=== PATIENT | female | born 1980 | race Caucasian/White ===

== ENCOUNTER 2016-12-26 13:26 | Outpatient (CLI) | payer OTHER ==
--- NOTE | 2016-12-26 15:22 | ULT ---
OB ULTRASOUND: COMPARISON: None. HISTORY: female. Evaluate size, dates, and anatomy. TECHNIQUE: Multiplanar, sauceda scale, and color Doppler images were obtained in a transabdominal ultrasound . FINDINGS: There is a single live intrauterine with heart rate of 140 b.p.m. A survey was perf ormed which is unremarkable. The head, intracranial structures, heart, stomach, kidneys, umbilical cord, umbilical cord insertion, spine, face, and extremities were normal. Average age of the fetus based off today's examination is 24 weeks 0 days. The following measurements were taken and dates b ased off these measurements are as follows. BPD 5.60 cm, 23 weeks 1 day HC 22.00 cm, 24 weeks 0 day AC 19.92 cm, 24 weeks 4 days FL 4.43 cm, 24 weeks 4 days The placenta is fundal/posterior in location without evidence of placenta previa. The cervix is nor mal in length. EDGAR is 17.2 cm, which is normal. IMPRESSION: Single live intrauterine with estimated age of 24 weeks 0 days. POS: [facility]
== END 2016-12-26 13:27 | disposition home or self-care (01) ==
LOC: SCSULT 13:26
PROVIDERS: ATTEND Family Medicine
DX: Z34.92 Encounter for supervision of normal pregnancy, unspecified, second trimester (principal); Z3A.21 21 weeks gestation of pregnancy
CPT/HCPCS: 76805

== ENCOUNTER 2017-04-13 20:57 | Inpatient (IN) | payer OTHER ==
--- NOTE | 2017-04-11 16:19 | HP ---
HISTORY OF PRESENT ILLNESS: This is a 36-year-old white female G4, P3 at 39 weeks with an EDC of 05/2017, who is being admitted for an elective Cytotec/Pitocin induction. The patient does have a hi story of rapid deliveries. course has been uncomplicated. The patient has been having occa sional contractions for the past several days. She was seen in the office on Friday. Cervix was not ed to be 2 cm dilated, 50%, high vertex presentation. PAST MEDICAL HISTORY: Anxiety disorder, headaches, questionable myocardial infarction at age 22, his tory of a CVA with right upper extremity weakness in 02/2013. SURGERIES: None. FAMILY HISTORY: Unremarkable. SOCIAL HISTORY: The patient does not smoke, does not drink. She works for [employer] studies. She is erika ied. She does have 3 other kids. REVIEW OF SYSTEMS: As above. PHYSICAL EXAMINATION: VITAL SIGNS: Stable, afebrile. HEENT: Clear. HEART: Regular rate and rhythm. LUNGS: Clear. ABDOMEN: Gravid. EXTREMITIES: With no edema. Cervix is 2 cm, 50%, high vertex. LABORATORY: GBS positive. HIV negative. One-hour GTT 168. Three-hour GTT abnormal. Fasting blood sugars all have been less than 100 for the past several weeks. The patient did not tolerate metform in. History of anemia with hemoglobin of 8.7. GC chlamydia negative. HPV negative. Thyroid: Hype rthyroid. HIV negative. B positive blood type. Urine culture negative. Rubella immune. ASSESSMENT: 1. A 39-week intrauterine . 2. History of rapid deliveries. 3. Hyperthyroid. 4. Gestational diabetes, diet controlled, GBS positive. 5. Anemia. PLAN: 1. Admit for elective Cytotec/Pitocin induction. 2. Emphasized iron daily for patient. 3. Cytotec/Pitocin induction. 4. Routine L&D orders and anesthesia orders.
[2017-04-13] MEDS ORDERED: Acetaminophen/Codeine 30-300mg Tablet PO PRN (21:07)
[2017-04-13] MEDS ORDERED: Misoprostol 200 MCG TAB PR PRN (21:07)
[2017-04-13] MEDS ORDERED: Promethazine HCl 25 MG/ML VIAL IM PRN (21:07)
[2017-04-13] MEDS ORDERED: Lidocaine 1% (PF) 30 ML VIAL SC PRN (21:07)
[2017-04-13] MEDS ORDERED: Ondansetron HCl/PF 4 MG/2 ML Vial IVP PRN (21:07)
[2017-04-13] MEDS ORDERED: HYDROcodone/Acetaminophen 5/325 mg Tablet PO PRN (21:07)
[2017-04-13] MEDS ORDERED: Ibuprofen 800 MG TAB PO PRN (21:07)
[2017-04-13] MEDS ORDERED: Penicillin G Potassium 5 MILL.UNITS in Sodium Chloride 0.9% 100 ML IVPB SCH (21:30)
[2017-04-13 21:59] VITALS: BMI 29.9
[2017-04-13 22:09] LABS: Hemoglobin 11.7 g/dL (12.0-16.0); Mean Corpuscular HGB CONC 33.9 g/dL (32.0-36.0); Mean Corpuscular Volume 82.7 fl (81.0-99.0); Mean Platelet Volume 10.3 fL (7.4-10.4); Platelet Count 242 thou/uL (130-400); RBC Distribution Width 20.6 % (11.5-14.5); Red Blood Cell (RBC) Count 4.16 mill/uL (4.20-5.40); White Blood Cell (WBC) Count 8.8 thou/uL (4.8-10.8)
[2017-04-13] MEDS: Lactated Ringer's 1,000 ML IV SCH (22:09)
[2017-04-13] MEDS: Misoprostol 100 MCG TAB VAG SCH (22:26)
[2017-04-13 22:50] LABS: HBSAg Index 0.17 S/CO (0-0.99); Hep B Surf Ag Non-Reactive S/CO (NonReactive); Syphilis Antibody Nonreactive (Nonreactive); Syphilis Antibody Index 0.07 S/CO (<1.00 Non-Reactive)
[2017-04-14] MEDS ORDERED: Penicillin G 2.5 MILL.units 50 ML ONE (01:21)
[2017-04-14] MEDS: Misoprostol 100 MCG TAB VAG SCH ×5 (01:26→16:51)
[2017-04-14] MEDS: Penicillin G 2.5 MILL.units 2.5 MILL.UNITS in Premix Bag 1 BAG IVPB SCH ×4 (01:26→16:51)
[2017-04-14] MEDS: LR 500 ML/Oxytocin 10 units 500 ML IV SCH ×2 (06:00→09:06)
[2017-04-14] MEDS ORDERED: Bupivacaine 20 ML, Fentanyl 400 MCG in Sodium Chloride 0.9% 72 ML EPIDURAL SCH (06:00)
[2017-04-14] MEDS ORDERED: Naloxone HCl 0.4 mg/ml Vial IVP PRN ×2 (07:42)
[2017-04-14] MEDS ORDERED: Promethazine HCl 25 MG/ML VIAL IM PRN (07:42)
[2017-04-14] MEDS ORDERED: Lactated Ringer's 500 ML IV PRN (07:42)
[2017-04-14] MEDS ORDERED: Eucerin (Mineral Oil/Petrolatum,White) 30 gm Jar TOP PRN (07:42)
[2017-04-14] MEDS ORDERED: Ondansetron HCl/PF 4 MG/2 ML Vial IVP PRN (07:42)
[2017-04-14] MEDS ORDERED: Acetaminophen 325 MG TAB PO PRN (07:42)
[2017-04-14] MEDS ORDERED: ePHEDrine/0.9% NaCl/PF SYRINGE 50 mg/10 ml SLOW IVP PRN (07:42)
[2017-04-14] MEDS ORDERED: diphenhydrAMINE 50 MG/ML VIAL IVP PRN (07:42)
[2017-04-14] MEDS ORDERED: Communication Order-Pharmacy FS SCH (07:45)
[2017-04-14] MEDS ORDERED: Fentanyl 4mcg/Marcaine 0.1% Cassette 100 ML EPIDURAL SCH (07:45)
[2017-04-14] MEDS: Lactated Ringer's 1,000 ML IV SCH ×2 (07:57→16:51)
[2017-04-14] MEDS: LR / Pitocin 40 units/1000 ml 1,000 ML IV PRN ×2 (10:41→12:07)
--- NOTE | 2017-04-14 11:52 | DN ---
DATE: 04/14/2017 PREOPERATIVE DIAGNOSES: 1. Term . 2. GBS positive. POSTOPERATIVE DIAGNOSES: 1. Term . 2. GBS positive. PROCEDURE: Spontaneous vaginal delivery with repair of a 2 cm left vaginal wall tear. ANESTHESIA: Epidural. PROCEDURE: This 36-year-old white female was taken to the delivery room, complete and pushing. The patient prepped and draped sterilely. Delivered a baby boy with Apgars 9 at 1 minute and 9 at 5 celeste sheila. Baby did breathe and cry vigorously upon delivery. Delivered placenta, 3-vessel intact. Repai red a 2 cm left vaginal wall laceration with 3-0 chromic. Delivered placenta, 3-vessel intact. Leisa mated blood loss 350 mL. Mom and baby did well.
[2017-04-14] MEDS ORDERED: Hydrocerin (Eucerin) Cream 120 gm Jar TOP PRN (12:18)
[2017-04-14] MEDS ORDERED: LR / Pitocin 40 units/1000 ml 1,000 ML IV SCH (14:00)
[2017-04-14] MEDS ORDERED: Adacel (T-DAP) 0.5 ML VIAL IM ONE (14:00)
[2017-04-14] MEDS ORDERED: Bisacodyl 10 MG SUPP PR PRN (14:00)
[2017-04-14] MEDS ORDERED: Milk Of Magnesia 30 ML UDCUP PO PRN (14:00)
[2017-04-14] MEDS ORDERED: Lanolin Ointment 7 GM TUBE TOP PRN (14:00)
[2017-04-14] MEDS: Ferrous Sulfate 325 MG TAB PO SCH (16:54)
[2017-04-14] MEDS ORDERED: Lidocaine 2% MPF 10 ML AMP (For Epidural Use) ONE (17:15)
[2017-04-14] MEDS ORDERED: ePHEDrine/0.9% NaCl/PF SYRINGE 50 mg/10 ml ONE (17:15)
[2017-04-14] MEDS ORDERED: Ibuprofen 800 MG TAB PO SCH (17:30)
[2017-04-14] MEDS: Ibuprofen 800 MG TAB PO SCH ×3 (17:34→17:36)
[2017-04-14] MEDS: Docusate Calcium (SURFAK) 240 MG CAP PO SCH (21:28)
[2017-04-15 05:43] LABS: Mean Corpuscular HGB CONC 32.8 g/dL (32.0-36.0); Mean Corpuscular Hemoglobin 27.8 pg (27.0-31.0); Mean Corpuscular Volume 84.9 fl (81.0-99.0); Mean Platelet Volume 10.2 fL (7.4-10.4); Platelet Count 209 thou/uL (130-400); RBC Distribution Width 20.6 % (11.5-14.5); Red Blood Cell (RBC) Count 3.97 mill/uL (4.20-5.40); White Blood Cell (WBC) Count 9.6 thou/uL (4.8-10.8)
[2017-04-15] MEDS ORDERED: Ibuprofen 100 MG/5 ML UDCUP PO SCH (06:00)
[2017-04-15 07:45] VITALS: BP 136/74; TEMP 99.6
[2017-04-15] MEDS: Ferrous Sulfate 325 MG TAB PO SCH (08:02)
[2017-04-15] MEDS: Docusate Calcium (SURFAK) 240 MG CAP PO SCH (08:02)
[2017-04-15] MEDS ORDERED: Prenatal Vitamin 1 TAB PO SCH (09:00)
== END 2017-04-15 12:30 | disposition home or self-care (01) | DRG 775 ==
LOC: L&D 20:57 → 3SW 04-14 13:43
PROVIDERS: ADMIT Family Medicine; ATTEND Family Medicine
PROC: 10E0XZZ Delivery of Products of Conception, External Approach (ICD-10-PCS; principal; 2017-04-14)
DX: O24.420 Gestational diabetes mellitus in childbirth, diet controlled (principal); D64.9 Anemia, unspecified; O99.284 Endocrine, nutritional and metabolic diseases complicating childbirth; E05.90 Thyrotoxicosis, unspecified without thyrotoxic crisis or storm; O99.824 Streptococcus B carrier state complicating childbirth; O99.02 Anemia complicating childbirth; Z3A.39 39 weeks gestation of pregnancy; Z37.0 Single live birth; Z86.73 Personal history of transient ischemic attack (TIA), and cerebral infarction without residual deficits
CPT/HCPCS: 36415; 51702; 85027; 86780; 87340; J2001; J2540; J3010; J3490; J7050; J7120

== ENCOUNTER 2017-10-30 21:42 | Emergency (ER) | payer OTHER ==
[2017-10-30] MEDS ORDERED: diphenhydrAMINE 50 MG/ML VIAL ONE (22:23)
[2017-10-30] MEDS ORDERED: Metoclopramide HCl 10 MG/2 ML VIAL ONE (22:23)
[2017-10-30 22:44] LABS: Bilirubin Negative (Negative); Blood, Urine Large (Negative); Clarity CLOUDY (Clear); Glucose, Urine (Dipstick) Negative (Negative); Leukocyte Small (Negative); Nitrite Negative (Negative); Protein, Urine (Dipstick) Trace mg/dL (Neg-Trace); Specific Gravity, Urine 1.004 (1.002-1.036); Urobilinogen 0.2 mg/dL (0.2-1.0); pH, Urine 6.5 (5.0-9.0)
[2017-10-30 22:46] LABS: Pathc Cast-AUWi Flag 0.87 (0-2.49)
[2017-10-30 22:52] LABS: Pregnancy Test - Urine (BHCG) Negative (Negative); Pregu Control Background? CLEAR/WHITE (CLR/WHITE); Pregu Control Bar Appear? YES (CONTROL BAR); Specific Gravity 1.004 (1.002-1.036)
[2017-10-30 22:58] LABS: Bacteria/HPF Rare-Few HPF (None Seen); Hyaline Casts/LPF 0-3 HYALINE CAST LPF (0-3 Hyaline); RBC/HPF 21-50 HPF (0-3); Squamous Epithelial 0-3 HPF (0-3)
[2017-10-30] MEDS ORDERED: Ketorolac Tromethamine 30 MG/ML VIAL ONE (23:27)
== END 2017-10-31 00:04 | disposition left against medical advice (07) ==
LOC: ERS 21:42
DX: R51 Headache (principal); I25.2 Old myocardial infarction
CPT/HCPCS: 81003; 81015; 81025; 96365; 96375; J1200; J1885; J2765

== ENCOUNTER 2019-06-27 23:57 | Emergency (ER) | payer OTHER, SELFPAY ==
[2019-06-28 00:30] LABS: #Lymphocytes 1.4 thou/uL (1.20-3.40); #Monocytes 0.4 thou/uL (0.11-0.59); #Neutrophils 13.2 thou/uL (1.40-6.50); %Basophils 0.3 % (0.0-1.0); %Lymphocytes 9.1 % (21.0-51.0); %Monocytes 2.4 % (0.0-10.0); %Neutrophils 88.2 % (42.0-75.0); Hemoglobin 12.7 g/dL (12.0-16.0); Mean Corpuscular HGB CONC 34.9 g/dL (32.0-36.0); Mean Corpuscular Hemoglobin 30.7 pg (27.0-31.0); Mean Corpuscular Volume 87.9 fL (78.0-98.0); Platelet Count 425 thou/uL (130-400); RBC Distribution Width 12.5 % (11.5-14.5); Red Blood Cell (RBC) Count 4.14 mill/uL (4.20-5.40); White Blood Cell (WBC) Count 14.9 thou/uL (4.8-10.8)
[2019-06-28 00:52] LABS: ALT (SGPT) 11 U/L (8-55); AST (SGOT) 14 U/L (5-34); Alkaline Phosphatase 103 U/L (40-110); Anion Gap 16 mmol/L (10-20); BUN (Urea Nitrogen) 9 mg/dL (7.0-18.7); Bilirubin, Total 0.3 mg/dL (0.2-1.2); Calc. Creatinine Clearance 0 mL/min (70-130); Calcium 9.6 mg/dL (7.8-10.44); Carbon Dioxide 21 mmol/L (22-29); Chloride 104 mmol/L (98-107); Estimated GFR-MDRD 83; Globulin 3.7 g/dL (2.4-3.5); Glucose 148 mg/dL (70-105); Potassium 3.2 mmol/L (3.5-5.1); Protein, Total 7.7 g/dL (6.0-8.3); Sodium 138 mmol/L (136-145)
[2019-06-28] MEDS ORDERED: Sucralfate 1 GM/10 ML UDCUP ONE (01:54)
[2019-06-28] MEDS ORDERED: HYDROcodone/Acetaminophen 5/325 mg Tablet ONE (02:15)
--- NOTE | 2019-06-28 07:44 | RAD ---
SINGLE VIEW CHEST: Date: 06/28/2019 COMPARISON: 02/25/2013. HISTORY: Chest pain. FINDINGS: Single view of the chest shows a normal sized cardiomediastinal silhouette. There is no evidence of c onsolidation, mass, or pleural effusion. The bones are unremarkable. IMPRESSION: No evidence of acute cardiopulmonary disease. POS: [facility]
== END 2019-06-28 02:20 | disposition home or self-care (01) ==
LOC: ERS 23:57
DX: R10.13 Epigastric pain (principal); I25.2 Old myocardial infarction
CPT/HCPCS: 36415; 71045; 80053; 83690; 84484; 85025; 93005

== ENCOUNTER 2019-06-29 08:54 | Day surgery (SDC) | payer BC, SELFPAY ==
[2019-06-29] MEDS ORDERED: Ondansetron PF 4 MG/2 ML Vial ONE ×3 (09:36→12:47)
[2019-06-29] MEDS ORDERED: Morphine 4 MG/ML VIAL ONE ×4 (09:36→16:36)
[2019-06-29 09:44] LABS: #Lymphocytes 1.6 thou/uL (1.20-3.40); #Monocytes 0.8 thou/uL (0.11-0.59); #Neutrophils 14.3 thou/uL (1.40-6.50); %Basophils 0.2 % (0.0-1.0); %Eosinophils 0.2 % (0.0-10.0); %Lymphocytes 9.5 % (21.0-51.0); %Monocytes 4.9 % (0.0-10.0); %Neutrophils 85.2 % (42.0-75.0); Mean Corpuscular HGB CONC 32.4 g/dL (32.0-36.0); Mean Corpuscular Hemoglobin 29.1 pg (27.0-31.0); Mean Corpuscular Volume 89.8 fL (78.0-98.0); Mean Platelet Volume 7.7 fL (7.4-10.4); Platelet Count 362 thou/uL (130-400); RBC Distribution Width 12.6 % (11.5-14.5); Red Blood Cell (RBC) Count 4.12 mill/uL (4.20-5.40); White Blood Cell (WBC) Count 16.7 thou/uL (4.8-10.8)
--- NOTE | 2019-06-29 09:55 | ULT ---
EXAM: US Gallbladder RUQ CLINICAL HISTORY: Right upper quadrant pain. COMPARISON: None. FINDINGS: Pancreas: Head of the pancreas has a normal echotexture. The remainder the pancreas is obscured by b owel gas Liver:Hepatic parenchyma has a normal echotexture. No hepatic masses or intrahepatic biliary dilatati on. Right hepatic lobe: 16.2 cm Gallbladder: No sonographic evidence of cholelithiasis. Gallbladder wall is thickened measuring 0.49 cm. Small amount of pericholecystic fluid. Gregg's sign:Negative Portal Vein: Patent. Appropriate directional flow Bile ducts: Common bile duct diameter 0.34 cm Right kidney: No hydronephrosis. Right kidney measures 8.7 cm in length. IMPRESSION: 1. No sonographic evidence of cholelithiasis. However, gallbladder wall is thickened and there is a s mall amount. Cholecystic fluid. If there is concern for acalculus cholecystitis, consider HIDA scan.
[2019-06-29 10:06] LABS: ALT (SGPT) 9 U/L (8-55); AST (SGOT) 11 U/L (5-34); Albumin 3.7 g/dL (3.5-5.0); Alkaline Phosphatase 100 U/L (40-110); Anion Gap 13 mmol/L (10-20); BUN (Urea Nitrogen) 7 mg/dL (7.0-18.7); Bilirubin, Total 0.7 mg/dL (0.2-1.2); Calc. Creatinine Clearance 0 mL/min (70-130); Calcium 8.7 mg/dL (7.8-10.44); Carbon Dioxide 21 mmol/L (22-29); Chloride 104 mmol/L (98-107); Estimated GFR-MDRD Greater than 90; Globulin 3.5 g/dL (2.4-3.5); Glucose 100 mg/dL (70-105); Lipase 5 U/L (8-78); Potassium 3.4 mmol/L (3.5-5.1); Protein, Total 7.2 g/dL (6.0-8.3); Sodium 135 mmol/L (136-145)
[2019-06-29] MEDS ORDERED: Lidocaine 1% PF 5 ML VIAL ONE (12:47)
[2019-06-29] MEDS ORDERED: Rocuronium Bromide 10 MG/ML (10ML VIAL) ONE (12:47)
[2019-06-29] MEDS ORDERED: PROPOFOL 200 MG/20 ML VIAL ONE (12:47)
[2019-06-29] MEDS ORDERED: Dexamethasone 20 MG/5 ML VIAL ONE (12:47)
[2019-06-29] MEDS ORDERED: Ketorolac Tromethamine 30 MG/ML VIAL ONE (12:47)
[2019-06-29] MEDS ORDERED: Esmolol 100 MG/10 ML VIAL ONE (12:47)
--- NOTE | 2019-06-29 14:14 | CON ---
DATE OF CONSULTATION: 06/29/2019 REQUESTING PHYSICIAN: Mau Porras DO ATTENDING SURGEON: Dr. Melgar. REASON FOR CONSULTATION: Abdominal pain with abnormal abdominal ultrasound. HISTORY OF PRESENT ILLNESS: The patient is a 39-year-old woman who presented to the emergency department with approximately 36 hours of abdominal pain, primarily in the right upper quadrant, significant nausea and two episodes of diarrhea. The patient denied any ill contacts or fevers. She relates this episode to multiple previous episodes over the prior year, which she states have become more frequent in duration, frequency, and intensity. ALLERGIES: NO KNOWN DRUG ALLERGIES. CURRENT MEDICATIONS: 1. Carafate. 2. Pepcid before meals. PAST MEDICAL HISTORY: Migraine headaches. The patient reports a cardiac history of "heart attack" and irregular heart beat at age 22. The patient reports having a stress test, but no other procedures done. PAST SURGICAL HISTORY: None. SOCIAL HISTORY: The patient lives at home with family. She denies drug, tobacco, or alcohol use. PHYSICAL EXAMINATION: VITAL SIGNS: Blood pressure 138/54, heart rate 82, respirations 16, oxygen saturation 97% on room air, and temperature is 98.5. GENERAL: The patient is resting in the ER bed. She appears to be having some discomfort, primarily related to nausea and she is receiving Zofran at this time. The patient is awake, alert, conversant, appropriate. HEENT. Head is normocephalic and atraumatic. Eyes, extraocular motions are intact. PERRLA bilaterally. Ears are atraumatic without discharge. Nose is atraumatic without discharge. Oropharynx is clear. NECK: Nontender. Trachea is midline. No JVD. CHEST: Clear to auscultation with good inspiratory and expiratory efforts. HEART: Regular rate and rhythm. ABDOMEN: Soft with right upper quadrant tenderness when the right lower quadrant is palpated. The patient also has significant positive Gregg sign. Bowel sounds are active. EXTREMITIES: Neurovascularly intact x4. BACK: Has negative CVA tenderness but did have right upper quadrant pain related to tapping on her right side. LABORATORY FINDINGS: WBC 16.7, hemoglobin 12.0, hematocrit 37.0, platelets 62. Sodium 135, potassium 3.4, chloride 104, CO2 of 21, BUN 7, creatinine 0.65, glucose 100. LFTs are unremarkable with a total bilirubin of 0.7, AST 11, ALT 9, alkaline phosphatase 100, lipase 5. RADIOGRAPHIC FINDINGS: Abdominal ultrasound shows no sonographic evidence of cholelithiasis. However, the gallbladder wall is thickened and there is a small amount of cholecystic fluid. Gallbladder wall measures 0.49 cm. Common bile duct measures 0.34 cm. ASSESSMENT AND PLAN: 1. Abdominal pain. 2. Cholecystitis without cholelithiasis. PLAN: Plan will be to admit the patient to day-stay for laparoscopic cholecystectomy. We will keep the patient n.p.o., pain control, pulmonary toilet, gastritis, mechanical VTE prophylaxis. The patient will likely be able to be discharged home today. The evaluation, examination, laboratory, and radiographic findings were discussed with Dr. Melgar prior to this dictation and he is examining the patient in the emergency department at this time. Job ID: [id number] MTDD
[2019-06-29] MEDS ORDERED: Bupivacaine 0.25% HCL 30 ML VIAL ONE (18:40)
[2019-06-29] MEDS ORDERED: Lidocaine 1% w/Epinephrine 1:100K 20 ML VIAL ONE (18:40)
[2019-06-29] MEDS ORDERED: Iothalamate Meglumine 60% 30 ML VIAL FS ONE (18:40)
[2019-06-29] MEDS ORDERED: Fentanyl 100 MCG/2 ML VIAL ONE (18:45)
[2019-06-29] MEDS ORDERED: Morphine 2 MG/ML SYRINGE ONE (20:25)
[2019-06-29] MEDS ORDERED: Labetalol HCl 100 MG/20 ML VIAL ONE (20:55)
[2019-06-29] MEDS ORDERED: Labetalol HCl 100 MG/20 ML VIAL SLOW IVP PRN (20:58)
[2019-06-29] MEDS ORDERED: HYDROcodone/Acetaminophen 5/325 mg Tablet ONE ×2 (21:01)
--- NOTE | 2019-06-30 01:21 | OP ---
DATE OF PROCEDURE: 06/29/2019 PREOPERATIVE DIAGNOSIS: Acute cholecystitis. POSTOPERATIVE DIAGNOSIS: Acute cholecystitis. PROCEDURE PERFORMED: Laparoscopic cholecystectomy. ANESTHESIA: General. ESTIMATED BLOOD LOSS: Minimal. COMPLICATIONS: None. FINDINGS: Cholecystitis. TECHNIQUE: The patient was taken to the operating room and laid supine on the operating table. After general anesthetic was obtained, the abdomen was prepped and draped in a sterile fashion. A curvilinear incision made below the umbilicus. Electrocautery was used to dissect down to and incise the external fascia. The abdominal cavity was entered bluntly using a Sharon clamp. Holding stitch of Vicryl placed on each side of the fascia. Desiree trocar was placed. High-flow pneumoperitoneum was obtained. An upper midline 5-mm port and two right upper quadrant 5-mm ports were placed under direct camera visualization. The gallbladder was retracted from the gallbladder fossa. The peritoneum of the gallbladder was opened anteriorly and posteriorly. The critical view triangle was seen showing only the cystic duct and cystic artery branching medial to lateral with no other branching structures. A clip was placed high on the cystic duct. A small ductotomy was made just proximal to that. Cholangiocath was brought in through a separate stab incision and placed into cystic duct. Cholangiogram was performed which shows no contrast flow into the duodenum and a large stone in the distal common bile duct. There was a moderately enlarged common bile duct, right and left hepatic duct system. Cholangiocath was removed. Two clips were placed proximal to the cystic duct and were cut using laparoscopic scissors. The cystic artery was taken using two clips proximally and one clip distally and cut using laparoscopic scissors. Electrocautery was then used to dissect the gallbladder out of the gallbladder fossa. The gallbladder was placed into an EndoCatch bag and brought out through the Desiree. All port sites were infiltrated using local anesthesia. The right upper quadrant was irrigated copiously using sterile solution until returns are clear. There is no bleeding or bile. All ports were removed under camera visualization. Pneumoperitoneum was let down. Vicryl was used to close the fascial defect below the umbilicus, #4-0 Monocryl and Dermabond to close the skin incision. The patient will need to be transferred to [facility] for postoperative ERCP. Job ID: [id number]
== END 2019-06-29 21:50 | disposition home or self-care (01) ==
LOC: ERS 08:54 → SDC 14:42
PROVIDERS: ATTEND Surgery
PROC: 0FT44ZZ Resection of Gallbladder, Percutaneous Endoscopic Approach (ICD-10-PCS; principal; 2019-06-29)
DX: K80.12 Calculus of gallbladder with acute and chronic cholecystitis without obstruction (principal); Z91.018 Allergy to other foods
CPT/HCPCS: 36415; 76705; 80053; 83690; 85025; 88304; 96361; 96374; 96375; 96376; J0694; J1100; J1885; J2001; J2270; J2405; J2704; J3010; S0020

== ENCOUNTER 2020-11-11 21:28 | Emergency (ER) | payer BC ==
[~2020-11-11 21:28] MED LIST: Iopamidol-370 76% 500 ML 1 ML ONE
[2020-11-11] MEDS ORDERED: Acetaminophen 500 MG TAB ONE (22:31)
[2020-11-11 22:35] LABS: #Monocytes 0.3 thou/uL (0.11-0.59); #Neutrophils 2.8 thou/uL (1.40-6.50); %Basophils 0.2 % (0.0-1.0); %Eosinophils 0.5 % (0.0-10.0); %Lymphocytes 24.5 % (21.0-51.0); %Monocytes 6.7 % (0.0-10.0); %Neutrophils 68.1 % (42.0-75.0); Hemoglobin 11.5 g/dL (12.0-16.0); Mean Corpuscular HGB CONC 34.5 g/dL (32.0-36.0); Mean Corpuscular Hemoglobin 28.7 pg (27.0-31.0); Mean Corpuscular Volume 83.4 fL (78.0-98.0); Mean Platelet Volume 7.9 fL (7.4-10.4); Platelet Count 245 thou/uL (130-400); Red Blood Cell (RBC) Count 4.01 mill/uL (4.20-5.40); White Blood Cell (WBC) Count 4.1 thou/uL (4.8-10.8)
[2020-11-11 22:40] LABS: BHCG - Serum Negative (NEGATIVE); Pregs Control Background? CLEAR/WHITE (CLR/WHITE); Pregs Control Bar Appear? YES (CONTROL BAR)
[2020-11-11 22:58] LABS: ALT (SGPT) 28 U/L (8-55); AST (SGOT) 43 U/L (5-34); Albumin 3.3 g/dL (3.5-5.0); Alkaline Phosphatase 139 U/L (40-110); Anion Gap 15 mmol/L (10-20); BUN (Urea Nitrogen) 4 mg/dL (7.0-18.7); Bilirubin, Total 0.3 mg/dL (0.2-1.2); Calc. Creatinine Clearance 0 mL/min (70-130); Calcium 8.2 mg/dL (7.8-10.44); Carbon Dioxide 19 mmol/L (22-29); Chloride 105 mmol/L (98-107); Globulin 3.3 g/dL (2.4-3.5); Glucose 126 mg/dL (70-105); Potassium 3.1 mmol/L (3.5-5.1); Protein, Total 6.6 g/dL (6.0-8.3); Sodium 136 mmol/L (136-145)
== END 2020-11-12 01:28 | disposition home or self-care (01) ==
LOC: ERS 21:28
DX: J18.9 Pneumonia, unspecified organism (principal); Z79.899 Other long term (current) drug therapy; I25.2 Old myocardial infarction; G43.909 Migraine, unspecified, not intractable, without status migrainosus
CPT/HCPCS: 36415; 71045; 71275; 80053; 84484; 84703; 85025; 85379; 93005; Q9967